=== PATIENT | female | born 1985 | race Caucasian/White ===

== ENCOUNTER → 2017-08-08 | Outpatient (CLI) | payer OTHER ==
[~2017-08-08] MED LIST: ALBU90OI; ALBU90OI INH; ALBU90OI61 INH; Albuterol2.5 MG/0.5 HHN; Bactrim Ds Tab1 EACH PO; CEPH500 PO; CIPR500 PO; CLIN150 PO; CLIN300 PO; CODACEE120 PO; CODGUAEL PO; CRUTCH2 USE; CYCL10 PO; Cyclobenzaprine5 MG PO; DOXY100 PO; HYDACE5 PO; IBUP800 PO; KETO10 PO; LAVAP4L PO; LISI5 PO; LOSA50 PO; MEDR150I IM; MONT10T PO; Norco 5-325 Ta1 EACH PO; PARO25; PHENA200 PO; PRED10 PO; PROC10 PO; PROCODE120 PO; PROM25 PO; PSEU120ER PO; Pyridium100 MG PO; RANI150 PO; RXHYDACE PO; RXPHEN200 PO; RXSULTRIDS PO; RXTRAM50 PO; SULF10OPSA OD; SULTRIDS PO; TOBR.3OPSO OP; TRAM50 PO
[2017-08-11 10:18] LABS: HPV Genotype 16 Not Detected (NOTDET); HPV Genotype 18 Not Detected (NOTDET)
[2017-08-15 19:55] LABS: HPV High Risk Other Detected (NOTDET)
== END ==
LOC: LAB 13:03
PROVIDERS: Registered Nurse Community Health
DX: Z12.4 Encounter for screening for malignant neoplasm of cervix (principal); R85.618 Other abnormal cytological findings on specimens from anus
CPT/HCPCS: 87624; G0123

== ENCOUNTER → 2017-08-26 | Outpatient (CLI) | payer OTHER ==
[~2017-08-26] MED LIST changes: -Bactrim Ds Tab1 EACH PO; -CYCL10 PO; -KETO10 PO; -Pyridium100 MG PO
== END ==
LOC: LAB EV 14:23 → LAB SHORT 14:23
DX: J02.9 Acute pharyngitis, unspecified (principal)
CPT/HCPCS: 87070

== ENCOUNTER → 2017-09-13 | Outpatient (CLI) | payer OTHER ==
[~2017-09-13] MED LIST changes: +Bactrim Ds Tab1 EACH PO; +CYCL10 PO; +KETO10 PO; +Pyridium100 MG PO
== END ==
LOC: PLD 07:46
DX: R87.89 Other abnormal findings in specimens from female genital organs (principal); R87.618 Other abnormal cytological findings on specimens from cervix uteri
CPT/HCPCS: 88305; 88342

== ENCOUNTER 2017-10-31 07:52 | Day surgery (SDC) | payer OTHER ==
[~2017-10-31] VITALS: Ht 167.6 cm; Wt 79.4 kg
[~2017-10-31 07:52] MED LIST changes: -Bactrim Ds Tab1 EACH PO; -CYCL10 PO; -KETO10 PO; -LOSA50 PO; -Pyridium100 MG PO
[2017-10-31] MEDS ORDERED: LOSA50 PO (08:27)
== END 2017-10-31 11:13 | disposition home or self-care (01) ==
LOC: ORSCSDS 07:52
PROVIDERS: Obstetrics & Gynecology
PROC: 0UBC7ZX Excision of Cervix, Via Natural or Artificial Opening, Diagnostic (ICD-10-PCS; principal; 2017-10-31 09:30)
DX: D06.0 Carcinoma in situ of endocervix (principal); I10 Essential (primary) hypertension; J45.909 Unspecified asthma, uncomplicated; F17.210 Nicotine dependence, cigarettes, uncomplicated; Z79.899 Other long term (current) drug therapy
CPT/HCPCS: 88307; 88342; 93005; 93010; J0690; J2250; J3010

== ENCOUNTER 2018-01-18 20:18 | Emergency (ER) | payer OTHER ==
[~2018-01-18] VITALS: Ht 167.6 cm; Wt 79.4 kg
[~2018-01-18 20:18] MED LIST changes: +LOSA50 PO
[2018-01-18] MEDS ORDERED: CYCL10 PO (21:00)
[2018-01-18] MEDS ORDERED: KETO10 PO (21:00)
== END 2018-01-18 21:29 | disposition home or self-care (01) ==
LOC: ER 20:18
DX: S16.1XXA Strain of muscle, fascia and tendon at neck level, initial encounter (principal); X58.XXXA Exposure to other specified factors, initial encounter; Z88.0 Allergy status to penicillin; Z88.8 Allergy status to other drugs, medicaments and biological substances; Z88.1 Allergy status to other antibiotic agents; Z79.899 Other long term (current) drug therapy; I10 Essential (primary) hypertension; J45.909 Unspecified asthma, uncomplicated; F17.200 Nicotine dependence, unspecified, uncomplicated
CPT/HCPCS: 99283

== ENCOUNTER 2018-03-22 16:02 | Emergency (ER) | payer OTHER ==
[~2018-03-22] VITALS: Ht 170.2 cm; Wt 77.1 kg
[~2018-03-22 16:02] MED LIST changes: +CYCL10 PO; +KETO10 PO
== END 2018-03-22 17:26 | disposition home or self-care (01) ==
LOC: ER 16:02
DX: M54.2 Cervicalgia (principal); G89.29 Other chronic pain; I10 Essential (primary) hypertension; J45.909 Unspecified asthma, uncomplicated; F17.200 Nicotine dependence, unspecified, uncomplicated; Z88.1 Allergy status to other antibiotic agents; Z88.0 Allergy status to penicillin; Z88.8 Allergy status to other drugs, medicaments and biological substances; Z79.899 Other long term (current) drug therapy

== ENCOUNTER 2018-04-05 06:27 | Emergency (ER) | payer OTHER ==
[~2018-04-05] VITALS: Ht 167.6 cm; Wt 77.1 kg
[2018-04-05 07:01] LABS: Source, Urine Clean Catch
[2018-04-05 07:04] LABS: Bilirubin, Urine Neg (Neg); Blood, Urine 5+ (Neg); Glucose Qualitative, Urine Neg (Neg); Ketones, Urine Neg (Neg); Leukocyte Esterase, Urine 3+ (Neg); Nitrite, Urine Pos (Neg); Protein, Urine 3+ (Neg); Specific Gravity, Urine 1.015 (1.003-1.022); Urobilinogen, Urine NORM (Normal)
[2018-04-05 07:16] LABS: Appearance, Urine Cloudy (Clear); Color, Urine Yellow (P-Yellow)
[2018-04-05 07:18] LABS: Bacteria Few /hpf; Squamous Epithelial Cells Few /hpf (Few); White Blood Cells, Urine TNTC /hpf (0-5)
[2018-04-05] MEDS ORDERED: Pyridium100 MG PO (07:25)
[2018-04-05] MEDS ORDERED: Norco 5-325 Ta1 EACH PO (07:25)
[2018-04-05] MEDS ORDERED: Bactrim Ds Tab1 EACH PO (07:25)
== END 2018-04-05 07:35 | disposition home or self-care (01) ==
LOC: ER 06:27
PROVIDERS: Emergency Medicine
DX: N39.0 Urinary tract infection, site not specified (principal); Z88.0 Allergy status to penicillin; Z88.8 Allergy status to other drugs, medicaments and biological substances; Z88.1 Allergy status to other antibiotic agents; Z79.899 Other long term (current) drug therapy; I10 Essential (primary) hypertension; J45.909 Unspecified asthma, uncomplicated; F17.210 Nicotine dependence, cigarettes, uncomplicated
CPT/HCPCS: 81001; 81025; 87077; 87086; 87186; 99283

== ENCOUNTER 2018-11-06 07:47 | Day surgery (SDC) | payer SELFPAY ==
[~2018-11-06] VITALS: Ht 167.6 cm; Wt 169.4 kg
[~2018-11-06 07:47] MED LIST changes: +Bactrim Ds Tab1 EACH PO; +Pyridium100 MG PO
--- NOTE | 2018-11-06 09:17 | NUR ---
11/06/18 0917 Maya Shepard SKIN IS RED AND RASH LIKE, HAS MULTIPLE AREAS OF FOLLICULITIS
== END 2018-11-06 10:38 | disposition home or self-care (01) ==
LOC: ORSCSDS 07:47
PROVIDERS: Obstetrics & Gynecology
PROC: 0UDB8ZX Extraction of Endometrium, Via Natural or Artificial Opening Endoscopic, Diagnostic (ICD-10-PCS; principal; 2018-11-06 09:00)
DX: N84.0 Polyp of corpus uteri (principal); I10 Essential (primary) hypertension; J45.909 Unspecified asthma, uncomplicated; F17.210 Nicotine dependence, cigarettes, uncomplicated
CPT/HCPCS: 88305; J0690; J1100; J1885; J2250; J2405; J2704; J3010

== ENCOUNTER 2019-02-14 02:03 | Emergency (ER) | payer SELFPAY ==
[~2019-02-14] VITALS: Ht 167.6 cm; Wt 77.1 kg
== END 2019-02-14 03:50 | disposition home or self-care (01) ==
LOC: ER 02:03
DX: S20.212A Contusion of left front wall of thorax, initial encounter (principal); I10 Essential (primary) hypertension; J45.909 Unspecified asthma, uncomplicated; F17.210 Nicotine dependence, cigarettes, uncomplicated; Z88.0 Allergy status to penicillin; W22.8XXA Striking against or struck by other objects, initial encounter
CPT/HCPCS: 71100; 96374; 99283-25; A9270; J1885

== ENCOUNTER 2019-09-18 14:23 | Emergency (ER) | payer SELFPAY ==
[~2019-09-18] VITALS: Ht 167.6 cm; Wt 80.2 kg
[2019-09-18] MEDS ORDERED: IBUP400 PO (16:09)
== END 2019-09-18 16:30 | disposition home or self-care (01) ==
LOC: ER 14:23
DX: R51 Headache (principal); J45.909 Unspecified asthma, uncomplicated; I10 Essential (primary) hypertension; F17.210 Nicotine dependence, cigarettes, uncomplicated; Z88.0 Allergy status to penicillin; Z88.1 Allergy status to other antibiotic agents
CPT/HCPCS: 36415; 87081; 87430; 96361; 96374; 96375; 99283-25; J1200; J1885; J2765; J7120

== ENCOUNTER 2020-07-16 11:28 | Emergency (ER) | payer OTHER ==
[~2020-07-16] VITALS: Ht 167.6 cm; Wt 77.1 kg
[~2020-07-16 11:28] MED LIST changes: +IBUP400 PO
[2020-07-16 12:15] LABS: BASOPHILS ABSOLUTE AUTO 0.03 K/mm3 (0.00-0.23); BASOPHILS PERCENT AUTO 0 % (0-2); EOSINOPHILS ABSOLUTE AUTO 0.12 K/mm3 (0.00-0.68); EOSINOPHILS PERCENT AUTO 2 % (0-6); Hematocrit 45.8 % (33.0-51.0); Hemoglobin 15.3 g/dL (11.5-16.0); IMMATURE GRAN ABSOLUTE AUTO 0.04 K/mm3 (0.00-0.10); IMMATURE GRAN PERCENT AUTO 1 % (0-1); LYMPHOCYTES ABSOLUTE AUTO 2.43 K/mm3 (0.84-5.20); LYMPHOCYTES PERCENT AUTO 32 % (21-46); MONOCYTES ABSOLUTE AUTO 0.52 K/mm3 (0.16-1.47); MONOCYTES PERCENT AUTO 7 % (4-13); Mean Corpuscular HGB 32.3 pg (26.0-34.0); Mean Corpuscular HGB Conc 33.4 g/dL (31.5-36.5); Mean Corpuscular Volume 97 fL (80-100); Mean Platelet Volume 9.7 fL (9.1-12.4); NEUTROPHILS ABSOLUTE AUTO 4.49 K/mm3 (1.96-9.15); NEUTROPHILS PERCENT AUTO 59 % (41-73); Platelet Count 239 K/mm3 (150-400); RDW Standard Deviation 46.3 fL (35.1-46.3); Red Blood Cell Count 4.73 M/mm3 (3.80-5.20); White Blood Cell Count 7.63 K/mm3 (4.00-11.30)
[2020-07-16 12:27] LABS: International Normalized Ratio 1.02; Prothrombin Time Results 10.9 Sec (9.7-11.5)
[2020-07-16 12:51] LABS: Alanine Aminotransfer (ALT/SGP 31 U/L (12-78); Albumin, Blood 3.7 g/dL (3.4-5.0); Albumin/Globulin Ratio 0.9 (0.8-1.8); Alk Phos 88 U/L (50-136); Anion Gap 8 mmol/L (6-16); Aspartate Aminotrans (AST/SGOT 19 U/L (12-37); Bilirubin, Total 0.6 mg/dL (0.1-1.0); Blood Urea Nitrogen 11 mg/dL (8-24); Bun/Creatinine Ratio 17.6 (12.0-20.0); CO2, Blood 25 mmol/L (21-32); Calcium, Blood 8.8 mg/dL (8.5-10.1); Chloride, Blood 108 mmol/L (98-108); Creatinine, Blood 0.63 mg/dL (0.40-1.00); Globulin, Blood 3.9 g/dL (2.2-4.0); Glomerular Filtration Rate >60 (60-); Glucose, Blood 128 mg/dL (70-99); Potassium, Blood 3.2 mmol/L (3.5-5.5); Sodium, Blood 141 mmol/L (136-145); Total Protein, Blood 7.6 g/dL (6.4-8.2)
== END 2020-07-16 14:51 | disposition home or self-care (01) ==
LOC: ER 11:28
PROVIDERS: Physician Assistant
DX: G43.909 Migraine, unspecified, not intractable, without status migrainosus (principal); I10 Essential (primary) hypertension; J45.909 Unspecified asthma, uncomplicated; F17.210 Nicotine dependence, cigarettes, uncomplicated; Z88.1 Allergy status to other antibiotic agents; Z88.0 Allergy status to penicillin; Z88.6 Allergy status to analgesic agent
CPT/HCPCS: 36415; 70450; 80053; 85025; 85610; 96361; 96374; 96375; 99285-25; J0780; J1200; J1885; J7030

== ENCOUNTER → 2022-05-14 | Outpatient (CLI) | payer OTHER ==
[~2022-05-14] MED LIST changes: +ONDA4ODT MM
== END ==
LOC: LAB SHORT 07:19 → PLD 07:19
DX: N93.9 Abnormal uterine and vaginal bleeding, unspecified (principal)
CPT/HCPCS: 88305

== ENCOUNTER → 2022-05-20 | Outpatient (CLI) | payer OTHER ==
[2022-05-21 15:10] LABS: HPV 16 Negative (Negative); HPV 18 Negative (Negative); HPV OTHER HR TYPES Negative (Negative)
== END ==
LOC: LAB 09:58 → LAB SHORT 09:58
PROVIDERS: Obstetrics & Gynecology
DX: Z12.4 Encounter for screening for malignant neoplasm of cervix (principal)
CPT/HCPCS: 87624; G0123

== ENCOUNTER → 2022-06-17 | Outpatient (CLI) | payer OTHER ==
[2022-06-17 13:22] LABS: Source, Urine Clean Catch
[2022-06-17 14:19] LABS: Bacteria Few /hpf; Squamous Epithelial Cells Rare /hpf (Few); White Blood Cells, Urine 0-2 /hpf (0-5)
[2022-06-17 14:29] LABS: U Amphetamine Screen Not Detected; U Barbituate Screen Not Detected; U Benzodiazapine Screen Not Detected; U Buprenorphine Screen Not Detected; U Cannabinoids Screen Not Detected; U Cocaine Screen Not Detected; U Methadone Screen Not Detected; U Methamphetamine Screen Not Detected; U Opiates Screen Not Detected; U Oxycodone Screen Not Detected; U Phencyclidine Screen Not Detected; U Propoxyphene Screen Not Detected
== END | disposition home or self-care (01) ==
LOC: LAB SHORT 08:30
PROVIDERS: Family Medicine
DX: Z34.81 Encounter for supervision of other normal pregnancy, first trimester (principal)
CPT/HCPCS: 81015; 87086

== ENCOUNTER 2022-10-29 21:55 | Inpatient (IN) | payer OTHER ==
[~2022-10-29] VITALS: Ht 167.6 cm; Wt 78.9 kg
[2022-10-29 22:11] VITALS: BP 177/90
[2022-10-29 22:30] VITALS: BP 192/95
[2022-10-29 22:50] LABS: Source, Urine Clean Catch
[2022-10-29 23:11] LABS: Appearance, Urine Clear (Clear); Bilirubin, Urine Neg (Neg); Blood, Urine Neg (Neg); Glucose Qualitative, Urine Neg (Neg); Ketones, Urine Neg (Neg); Leukocyte Esterase, Urine Neg (Neg); Nitrite, Urine Neg (Neg); Protein, Urine Neg (Neg); Urobilinogen, Urine NORM (Normal)
[2022-10-29 23:14] VITALS: BP 175/92
[2022-10-29 23:17] LABS: Albumin, Blood 2.5 g/dL (3.4-5.0); Albumin/Globulin Ratio 0.6 (0.8-1.8); Bilirubin, Total 0.1 mg/dL (0.1-1.0); Bun/Creatinine Ratio 11.6 (12.0-20.0); Calcium, Blood 8.8 mg/dL (8.5-10.1); Creatinine, Blood 0.43 mg/dL (0.40-1.00); Potassium, Blood 2.2 mmol/L (3.5-5.5); Total Protein, Blood 6.5 g/dL (6.4-8.2)
[2022-10-29 23:18] LABS: Color, Urine Pale Yellow (P-Yellow)
[2022-10-29 23:26] LABS: Creatinine, Urine Random 10.8 mg/dL (27.00-270.00); Protein, Urine Random 5.4 mg/dL (0.0-11.9); Protein/Creat Ratio, Ur Random 0.5
[2022-10-29 23:44] VITALS: BP 158/83
[2022-10-30] VITALS (24 sets, daily range): BP systolic 117–164; BP diastolic 58–94
--- NOTE | 2022-10-30 07:18 | NUR ---
DR. NATHAN CALLED AT 0640. SHE HAD A PHONE CONSULTATION WITH DR. HERNANDEZ AND SHE WOULD LIKE TO START THE PT ON MAGNESIUM. 4GM LOADING DOSE BOLUS, THEN 2GM. SHE WOULD LIKE A GROWTH U/S WITH RACHEL, 24-HOUR PROTEIN URINE COLLECTION, BEDREST WITH BATHROOM PRIVILLEGES, LABETALOL 100 MG PO NOW, OFFER NICOTINE PATCH, CONTINUOUS MONITORING WITH MAG START. DR. HERNANDEZ WILL HAVE A TELEPHONE CONSULT WITH [facility]. WILL NEED TO DISCUSS SMOKING CESSATION WITH PATIENT. START MAG PROTOCOL. DR. NATHAN WILL BE IN TO DISCUSS THIS WITH PATIENT AROUND [phone]. THIS INFORMATION GIVEN TO DAY SHIFT.
[2022-10-30 07:39] LABS: Albumin, Blood 2.3 g/dL (3.4-5.0); Albumin/Globulin Ratio 0.7 (0.8-1.8); Bilirubin, Total 0.2 mg/dL (0.1-1.0); Bun/Creatinine Ratio 11.6 (12.0-20.0); Calcium, Blood 8.3 mg/dL (8.5-10.1); Creatinine, Blood 0.35 mg/dL (0.40-1.00); Globulin, Blood 3.4 g/dL (2.2-4.0); Potassium, Blood 2.3 mmol/L (3.5-5.5); Total Protein, Blood 5.7 g/dL (6.4-8.2)
[2022-10-30 07:47] LABS: Creatinine, Blood 0.39 mg/dL (0.40-1.00)
[2022-10-30 07:56] LABS: International Normalized Ratio 0.97; Prothrombin Time Results 10.2 Sec (9.7-11.5)
--- NOTE | 2022-10-30 11:45 | NUR ---
20g IV used due to multiple attempts to start with an 18g (8 total)
[2022-10-30 17:55] LABS: BASOPHILS ABSOLUTE AUTO 0.03 K/mm3 (0.00-0.23); BASOPHILS PERCENT AUTO 0 % (0-2); EOSINOPHILS PERCENT AUTO 1 % (0-6); Hematocrit 32.3 % (33.0-51.0); Hemoglobin 10.8 g/dL (11.5-16.0); IMMATURE GRAN ABSOLUTE AUTO 0.02 K/mm3 (0.00-0.10); IMMATURE GRAN PERCENT AUTO 0 % (0-1); LYMPHOCYTES ABSOLUTE AUTO 1.79 K/mm3 (0.84-5.20); LYMPHOCYTES PERCENT AUTO 22 % (21-46); MONOCYTES ABSOLUTE AUTO 0.39 K/mm3 (0.16-1.47); MONOCYTES PERCENT AUTO 5 % (4-13); Mean Corpuscular HGB 31.2 pg (26.0-34.0); Mean Corpuscular HGB Conc 33.4 g/dL (31.5-36.5); Mean Corpuscular Volume 93 fL (80-100); Mean Platelet Volume 9.1 fL (9.1-12.4); NEUTROPHILS ABSOLUTE AUTO 5.77 K/mm3 (1.96-9.15); NEUTROPHILS PERCENT AUTO 71 % (41-73); Platelet Count 210 K/mm3 (150-400); RDW Coefficient Variation 13.7 % (11.7-14.2); RDW Standard Deviation 46.5 fL (35.1-46.3); Red Blood Cell Count 3.46 M/mm3 (3.80-5.20)
[2022-10-30 18:30] LABS: Bun/Creatinine Ratio 12.9 (12.0-20.0); Calcium, Blood 8.6 mg/dL (8.5-10.1); Creatinine, Blood 0.39 mg/dL (0.40-1.00); Magnesium, Blood 1.9 mg/dL (1.6-2.4); Potassium, Blood 2.6 mmol/L (3.5-5.5)
[2022-10-31] VITALS (7 sets, daily range): BP systolic 109–159; BP diastolic 65–90
[2022-10-31 04:51] LABS: Bun/Creatinine Ratio 13.1 (12.0-20.0); Calcium, Blood 7.8 mg/dL (8.5-10.1); Creatinine, Blood 0.38 mg/dL (0.40-1.00); Magnesium, Blood 1.8 mg/dL (1.6-2.4); Potassium, Blood 2.5 mmol/L (3.5-5.5)
[2022-10-31 08:49] LABS: Protein, Urine Quantitative 11.3 mg/dL (0.0-11.9)
[2022-10-31 14:03] LABS: Albumin, Blood 2.2 g/dL (3.4-5.0); Albumin/Globulin Ratio 0.6 (0.8-1.8); Bilirubin, Total 0.2 mg/dL (0.1-1.0); Calcium, Blood 8.4 mg/dL (8.5-10.1); Creatinine, Blood 0.36 mg/dL (0.40-1.00); Globulin, Blood 3.5 g/dL (2.2-4.0); Magnesium, Blood 1.8 mg/dL (1.6-2.4); Potassium, Blood 3.1 mmol/L (3.5-5.5); Total Protein, Blood 5.7 g/dL (6.4-8.2)
[2022-10-31 18:22] LABS: Creatinine Urine 31.8 mg/dL (27.00-270.00)
[2022-10-31 21:39] LABS: Bun/Creatinine Ratio 15.3 (12.0-20.0); Creatinine, Blood 0.39 mg/dL (0.40-1.00)
[2022-11-01 00:08] VITALS: BP 158/87
[2022-11-01 06:14] LABS: Bun/Creatinine Ratio 9.5 (12.0-20.0); Calcium, Blood 8.2 mg/dL (8.5-10.1); Creatinine, Blood 0.42 mg/dL (0.40-1.00)
[2022-11-01 08:27] VITALS: BP 170/83
[2022-11-01 08:35] VITALS: BP 140/84
--- NOTE | 2022-11-01 08:43 | NUR ---
DR HERNANDEZ HERE STATES PATIENT CAN GO HOME TOLD HER TO TAKE MAGNESIUM 400MG BID PO OVER THE COUNTER, TAKE HER LABETALOL 200 TID AND CALLED HER IN [place] TO TAKE TID TO HER PHARMACY, PATIENT LEFT TO GO SMOKE AMA, AMA SIGNED ON PREVIOUS SHIFT, COVERING PATIENT FOR LUCAS [place]
[2022-11-01 09:11] VITALS: BP 145/85
[2022-11-01] MEDS ORDERED: ASPI81CH PO (10:08)
[2022-11-01] MEDS ORDERED: POTA20LUD PO (10:09)
[2022-11-01] MEDS ORDERED: MAGNESIUM OXID500 MG PO (10:09)
[2022-11-01] MEDS ORDERED: LABE200 PO (10:10)
== END 2022-11-01 09:40 | disposition home or self-care (01) | DRG 833 ==
LOC: OBS 21:55 → BC 22:03 → OBS 10-30 04:52 → BC 10-30 07:05
PROVIDERS: Internal Medicine; Obstetrics & Gynecology; ADMIT Family Medicine
DX: O10.912 Unspecified pre-existing hypertension complicating pregnancy, second trimester (principal); O99.512 Diseases of the respiratory system complicating pregnancy, second trimester; O99.282 Endocrine, nutritional and metabolic diseases complicating pregnancy, second trimester; E87.6 Hypokalemia; O99.332 Smoking (tobacco) complicating pregnancy, second trimester; F17.210 Nicotine dependence, cigarettes, uncomplicated; J45.20 Mild intermittent asthma, uncomplicated; Z3A.27 27 weeks gestation of pregnancy; Z79.82 Long term (current) use of aspirin; Z79.899 Other long term (current) drug therapy; Z88.0 Allergy status to penicillin; Z91.09 Other allergy status, other than to drugs and biological substances; Z71.6 Tobacco abuse counseling; Z79.51 Long term (current) use of inhaled steroids; Z88.1 Allergy status to other antibiotic agents
CPT/HCPCS: 36415; 76815; 80048; 80053; 81003; 81050; 82565; 82570; 83615; 83735; 83930; 83935; 84133; 84156; 85025; 85384; 85610; 85730; 93971; A9270; J3475; J3480; J7050; J7120

== ENCOUNTER → 2023-01-03 | Outpatient (CLI) | payer OTHER ==
[~2023-01-03] MED LIST changes: +ASPI81CH PO; +LABE200 PO; +MAGNESIUM OXID500 MG PO; +POTA20LUD PO
== END | disposition home or self-care (01) ==
LOC: LAB 16:13 → LAB SHORT 16:13
DX: O09.892 Supervision of other high risk pregnancies, second trimester (principal)
CPT/HCPCS: 87081; 87150

== ENCOUNTER 2023-01-06 12:42 | Inpatient (IN) | payer OTHER ==
[2023-01-06] VITALS (21 sets, daily range): BP systolic 111–151; BP diastolic 65–93
[~2023-01-06] VITALS: Ht 167.6 cm; Wt 79.0 kg
[2023-01-06 14:16] LABS: BASOPHILS ABSOLUTE AUTO 0.04 K/mm3 (0.00-0.23); BASOPHILS PERCENT AUTO 0 % (0-2); EOSINOPHILS ABSOLUTE AUTO 0.12 K/mm3 (0.00-0.68); EOSINOPHILS PERCENT AUTO 1 % (0-6); Hematocrit 37.9 % (33.0-51.0); IMMATURE GRAN ABSOLUTE AUTO 0.14 K/mm3 (0.00-0.10); IMMATURE GRAN PERCENT AUTO 1 % (0-1); LYMPHOCYTES ABSOLUTE AUTO 2.08 K/mm3 (0.84-5.20); LYMPHOCYTES PERCENT AUTO 19 % (21-46); MONOCYTES ABSOLUTE AUTO 0.51 K/mm3 (0.16-1.47); MONOCYTES PERCENT AUTO 5 % (4-13); Mean Corpuscular HGB 31.3 pg (26.0-34.0); Mean Corpuscular HGB Conc 34.3 g/dL (31.5-36.5); Mean Corpuscular Volume 91 fL (80-100); Mean Platelet Volume 9.7 fL (9.1-12.4); NEUTROPHILS ABSOLUTE AUTO 7.84 K/mm3 (1.96-9.15); NEUTROPHILS PERCENT AUTO 73 % (41-73); Platelet Count 222 K/mm3 (150-400); RDW Coefficient Variation 14.8 % (11.7-14.2); RDW Standard Deviation 48.9 fL (35.1-46.3); Red Blood Cell Count 4.15 M/mm3 (3.80-5.20); White Blood Cell Count 10.73 K/mm3 (4.00-11.30)
[2023-01-06 14:32] LABS: Albumin/Globulin Ratio 0.6 (0.8-1.8); Bilirubin, Total 0.2 mg/dL (0.1-1.0); Bun/Creatinine Ratio 8.7 (12.0-20.0); Creatinine, Blood 0.46 mg/dL (0.40-1.00); Globulin, Blood 4.8 g/dL (2.2-4.0); Potassium, Blood 4.5 mmol/L (3.5-5.5); Total Protein, Blood 7.8 g/dL (6.4-8.2)
[2023-01-06 15:38] LABS: Source, Urine Clean Catch
[2023-01-06 15:51] LABS: Appearance, Urine Clear (Clear); Bilirubin, Urine Neg (Neg); Blood, Urine Neg (Neg); Color, Urine Yellow (P-Yellow); Glucose Qualitative, Urine Neg (Neg); Ketones, Urine Neg (Neg); Leukocyte Esterase, Urine Neg (Neg); Nitrite, Urine Neg (Neg); Protein, Urine Neg (Neg); Urobilinogen, Urine NORM (Normal)
--- NOTE | 2023-01-06 17:58 | NUR ---
01/06/23 1400 PT HERE FROM [facility], DR NATHAN HERE, PT HAS HER AND SEVERAL FAMILY MEMBERS HERE FOR SUPPORT. PT GIVEN CHOICE TO STAY AND BEGIN CYTOTEC INDUCTION OR GO HOME AND RETURN, SHE OPTED TO STAY. DR HERNANDEZ AND DR NATHAN AT PTS BEDSIDE DISCUSSING PLAN. WITH PTS CONCENT A MESSAGE WAS SENT TO GOV[facility] PALOMARES WHO WILL BE AVAILABLE TO TAKE PHOTOS OF BABY AFTER DELIVERY.
[2023-01-06 19:02] LABS: Creatinine, Urine Random 36.2 mg/dL (27.00-270.00)
[2023-01-06 19:04] LABS: Microalb/Creat Ratio UR, Rand 59.392 mg/g (0.000-30.000); Microalbumin, Random Urine 21.5 mg/L (0.000-20.000)
[2023-01-06 22:13] LABS: Creatinine, Urine Random 62.8 mg/dL (27.00-270.00); Protein, Urine Random 10.7 mg/dL (0.0-11.9); Protein/Creat Ratio, Ur Random 0.2
[2023-01-07] VITALS (7 sets, daily range): BP systolic 117–132; BP diastolic 62–80
[2023-01-07] MEDS ORDERED: IBUP800 PO (09:23)
--- NOTE | 2023-01-07 09:47 | NUR ---
DISCHARGE INSTRUCTIONS, WRITTEN AND VERBAL, GIVEN TO PT AND . ANSWERED ALL QUESITONS AND CONCERNS. IV DISCONTINUED. MEDICATION PRESCRIPTION CALLED IN BY DR. NATHAN TO [facility] FOR IBUPROFEN AND PERCOCET. BEREAVEMENT BOX AND FOLDER GIVEN TO PARENTS. FOLLOW UP APPOINTMENT SCHEDULED AND PARENTS AWARE OF BEING ABLE TO GET HAND/FOOT MOLDS AT THAT TIME. PARENTS AWAITING [facility] TO [employer] [employer] DAUGHTER AND ARE READY FOR DISCHARGE. FAMILY JUST ARRIVED FOR VISITING.
== END 2023-01-07 10:14 | disposition home or self-care (01) | DRG 806 ==
LOC: OBS 12:42 → BC 12:42 → OBS 12:59 → BC 13:01
PROVIDERS: ADMIT Family Medicine
PROC: 10E0XZZ Delivery of Products of Conception, External Approach (ICD-10-PCS; principal; 2023-01-07)
PROC: 10907ZC Drainage of Amniotic Fluid, Therapeutic from Products of Conception, Via Natural or Artificial Opening (ICD-10-PCS; 2023-01-07)
PROC: 00HU33Z Insertion of Infusion Device into Spinal Canal, Percutaneous Approach (ICD-10-PCS; 2023-01-07)
PROC: 3E0R3BZ Introduction of Anesthetic Agent into Spinal Canal, Percutaneous Approach (ICD-10-PCS; 2023-01-07)
PROC: 3E033VJ Introduction of Other Hormone into Peripheral Vein, Percutaneous Approach (ICD-10-PCS; 2023-01-07)
PROC: 3E0P7VZ Introduction of Hormone into Female Reproductive, Via Natural or Artificial Opening (ICD-10-PCS; 2023-01-07)
DX: O36.4XX0 Maternal care for intrauterine death, not applicable or unspecified (principal); O10.92 Unspecified pre-existing hypertension complicating childbirth; Z37.1 Single stillbirth; O41.03X0 Oligohydramnios, third trimester, not applicable or unspecified; O99.354 Diseases of the nervous system complicating childbirth; O66.0 Obstructed labor due to shoulder dystocia; O99.334 Smoking (tobacco) complicating childbirth; O99.52 Diseases of the respiratory system complicating childbirth; J45.909 Unspecified asthma, uncomplicated; G43.909 Migraine, unspecified, not intractable, without status migrainosus; O09.513 Supervision of elderly primigravida, third trimester; F17.210 Nicotine dependence, cigarettes, uncomplicated; Z3A.36 36 weeks gestation of pregnancy; Z88.0 Allergy status to penicillin; Z87.410 Personal history of cervical dysplasia; Z88.1 Allergy status to other antibiotic agents; Z88.8 Allergy status to other drugs, medicaments and biological substances; Z79.899 Other long term (current) drug therapy; Z98.891 History of uterine scar from previous surgery; Z67.40 Type O blood, Rh positive
CPT/HCPCS: 36415; 51702; 80053; 81003; 82043; 82570; 84156; 85025; 86850; 86900; 86901; 88307; A9270; J2590; J3010; J7120

== ENCOUNTER 2024-02-02 22:25 | Emergency (ER) | payer OTHER ==
[~2024-02-02] VITALS: Ht 170.2 cm; Wt 77.1 kg
[2024-02-02 22:30] VITALS: BP 168/118
== END 2024-02-02 23:00 | disposition home or self-care (01) ==
LOC: ER 22:25
DX: S01.511A Laceration without foreign body of lip, initial encounter (principal); J45.909 Unspecified asthma, uncomplicated; I10 Essential (primary) hypertension; F17.210 Nicotine dependence, cigarettes, uncomplicated; W22.8XXA Striking against or struck by other objects, initial encounter; Z79.899 Other long term (current) drug therapy; Z88.1 Allergy status to other antibiotic agents; Z88.0 Allergy status to penicillin; Z88.8 Allergy status to other drugs, medicaments and biological substances
CPT/HCPCS: 12011; 99282-25

== ENCOUNTER 2024-05-15 09:39 | Emergency (ER) | payer OTHER ==
[~2024-05-15] VITALS: Ht 167.6 cm; Wt 72.6 kg
[2024-05-15 09:57] VITALS: BP 167/106
[2024-05-15 10:58] LABS: Influenza A, PCR NEGATIVE (NEGATIVE); Influenza B, PCR NEGATIVE (NEGATIVE); Resp Syncytial Virus, PCR NEGATIVE (NEGATIVE); SARS-Cov-2 (COVID-19) PCR, MMC NEGATIVE (NEGATIVE)
== END 2024-05-15 11:58 | disposition home or self-care (01) ==
LOC: ER 09:39
PROVIDERS: Physician Assistant
DX: J06.9 Acute upper respiratory infection, unspecified (principal); I10 Essential (primary) hypertension; J45.909 Unspecified asthma, uncomplicated; F17.210 Nicotine dependence, cigarettes, uncomplicated; Z88.1 Allergy status to other antibiotic agents; Z88.0 Allergy status to penicillin; Z88.8 Allergy status to other drugs, medicaments and biological substances; Z79.899 Other long term (current) drug therapy
CPT/HCPCS: 0241U; 99283

== ENCOUNTER 2024-07-27 05:59 | Emergency (ER) | payer OTHER ==
[~2024-07-27] VITALS: Ht 167.6 cm; Wt 78.5 kg
[2024-07-27 06:16] VITALS: BP 169/108
== END 2024-07-27 09:16 | disposition home or self-care (01) ==
LOC: ER 05:59
DX: O20.0 Threatened abortion (principal); Z88.1 Allergy status to other antibiotic agents; Z88.0 Allergy status to penicillin; Z88.8 Allergy status to other drugs, medicaments and biological substances; Z79.899 Other long term (current) drug therapy; O10.911 Unspecified pre-existing hypertension complicating pregnancy, first trimester; O99.511 Diseases of the respiratory system complicating pregnancy, first trimester; J45.909 Unspecified asthma, uncomplicated; O99.331 Smoking (tobacco) complicating pregnancy, first trimester; F17.210 Nicotine dependence, cigarettes, uncomplicated; Z3A.01 Less than 8 weeks gestation of pregnancy
CPT/HCPCS: 76801; 76817; 84702; 86900; 86901; 99284-25

== ENCOUNTER 2025-04-26 17:21 | Emergency (ER) | payer OTHER ==
[~2025-04-26] VITALS: Ht 167.6 cm; Wt 77.1 kg
[2025-04-26 18:02] VITALS: BP 163/100
[2025-04-26] MEDS ORDERED: RX Prepack 2 Sprays Naloxone HCL 4 MG/SPRAY UD ONE (18:55)
[2025-04-26] MEDS ORDERED: RX Prepack 6 Tabs Oxycodone 5mg UD ONE (18:55)
== END 2025-04-26 19:14 ==
LOC: ER 17:21
DX: S82.65XA Nondisplaced fracture of lateral malleolus of left fibula, initial encounter for closed fracture (principal); I10 Essential (primary) hypertension; Z79.899 Other long term (current) drug therapy; F17.210 Nicotine dependence, cigarettes, uncomplicated; Z88.0 Allergy status to penicillin; Z88.8 Allergy status to other drugs, medicaments and biological substances; W18.30XA Fall on same level, unspecified, initial encounter
CPT/HCPCS: 73610; 99283-25; A9270